=== PATIENT | female | born 1945 | race Caucasian/White ===

== ENCOUNTER 2018-11-18 07:47 | Day surgery (SDC) | payer MEDICARE, OTHER ==
[2018-11-18] MEDS ORDERED: FENTAnyl 50 MCG/ML VIAL IV (09:30)
[2018-11-18] MEDS ORDERED: ONDANSETRON 4 MG INJ IV (09:30)
[2018-11-18] MEDS ORDERED: PROPOFOL 40 ML (09:30)
[2018-11-18] MEDS ORDERED: ALBUTEROL 0.083% (NEB) 2.5 MG/3 ML AMP HHN (09:30)
[2018-11-18] MEDS ORDERED: LIDOCAINE 2% (SDV) 5 ML INJ (09:30)
[2018-11-18] MEDS ORDERED: ACETAMINOPHEN 500 MG TAB PO (09:30)
== END 2018-11-18 12:43 | disposition home or self-care (01) ==
LOC: GIL 07:47
DX: R19.4 Change in bowel habit (principal); K64.8 Other hemorrhoids; I10 Essential (primary) hypertension
CPT/HCPCS: 45380; 88305

== ENCOUNTER 2018-12-10 15:22 | Emergency (ER) | payer MEDICARE, OTHER ==
[2018-12-10] MEDS: ONDANSETRON 4 MG INJ IV (17:21)
[2018-12-10] MEDS: KETOROLAC 30 MG INJ IV (17:21)
[2018-12-10] MEDS: PROCHLORPERAZINE 10 MG INJ IV (17:22)
== END 2018-12-10 18:21 | disposition home or self-care (01) ==
LOC: FTE 18:21
DX: R51 Headache (principal); I10 Essential (primary) hypertension; R11.0 Nausea
CPT/HCPCS: 96374; 96375; 99284-25